=== PATIENT | male | born 1975 | race Caucasian/White ===

== ENCOUNTER → 2017-08-30 | Outpatient (CLI) | payer OTHER ==
[~2017-08-30] MED LIST: INDO-1 PO; INDO50CA92; LOR5/325 PO
--- NOTE | 2017-08-30 18:28 | EKG ---
FACILITY: [facility] PATIENT NAME: PATRICIA VILLEGAS : [id number] MR: [id number]: [id number] EXAM DATE: ORDERING PHYSICIAN: CHRIS NAJERA TECHNOLOGIST: RAFAELA Test Reason : PREOP-KNEE Blood Pressure : / mmHG Vent. Rate : 050 BPM Atrial Rate : 050 BPM P-R Int : 144 ms QRS Dur : 102 ms QT Int : 458 ms P-R-T Axes : 049 018 019 degrees QTc Int : 417 ms Sinus bradycardia Otherwise normal ECG No previous ECGs available Confirmed by CHRIS LAYTON ([id number]) on 09/01/2017 2:47:47 PM Referred By: DANIA Confirmed By:CHRIS LAYTON
== END ==
LOC: LAB 18:01
PROVIDERS: ATTEND Anesthesiology
DX: Z01.812 Encounter for preprocedural laboratory examination (principal); Z01.810 Encounter for preprocedural cardiovascular examination; R00.1 Bradycardia, unspecified; M94.261 Chondromalacia, right knee
CPT/HCPCS: 36415; 82310; 82374; 82435; 82565; 82947; 84132; 84295; 84520; 93005